=== PATIENT | female | born 1975 | race Caucasian/White ===

== ENCOUNTER 2025-03-29 22:35 | Emergency (ER) | payer OTHER ==
[~2025-03-29] VITALS: Ht 165.1 cm; Wt 81.6 kg
[2025-03-29] MEDS ORDERED: ACETAMINOPHEN ES 500 MG TABLET ONE (23:03)
[2025-03-29] MEDS: ACETAMINOPHEN ES 500 MG TABLET PO ONE (23:07)
[2025-03-30 01:30] VITALS: BP 130/83; TEMP 98.7; O2SAT 98
== END 2025-03-30 01:31 | disposition home or self-care (01) ==
LOC: ER 22:37
DX: S01.81XA Laceration without foreign body of other part of head, initial encounter (principal); M79.602 Pain in left arm; M25.562 Pain in left knee; V43.52XA Car driver injured in collision with other type car in traffic accident, initial encounter; Y93.89 Activity, other specified; Y92.488 Other paved roadways as the place of occurrence of the external cause; Y99.8 Other external cause status
CPT/HCPCS: 70450-TC; 71045-TC; 72125-TC; 73060-TC; 73564-TC